=== PATIENT | male | born 2000 | race Two or more races ===

== ENCOUNTER 2021-02-01 14:10 | Emergency (ER) | payer BC ==
[~2021-02-01] VITALS: Ht 172.7 cm; Wt 64.5 kg
[2021-02-01] MEDS ORDERED: TETanus/Pertussis (Acell)/Diphther VAC/PF (Tdap-Adult) 0.5ml syringe IMVAC ONE (15:05)
[2021-02-01] MEDS ORDERED: acetaminophen 325mg tablet PO ONE (15:15)
[2021-02-01] MEDS ORDERED: LIDOcaine 1% W/epiNEPHrine 1:200,000 10ml vial IJ ONE (15:15)
[2021-02-01 18:10] VITALS: BP 111/65
== END 2021-02-01 17:15 | disposition home or self-care (01) ==
LOC: ER 14:11
DX: S61.315A Laceration without foreign body of left ring finger with damage to nail, initial encounter (principal); V29.3XXA Motorcycle rider (driver) (passenger) injured in unspecified nontraffic accident, initial encounter; Y93.89 Activity, other specified; Y92.89 Other specified places as the place of occurrence of the external cause; Y99.8 Other external cause status
CPT/HCPCS: 11760; 73140; 90471; 90715; 99283; 99284; 99285